=== PATIENT | female | born 1975 ===

== ENCOUNTER 2017-04-20 16:49 | Emergency (ER) | payer OTHER ==
[~2017-04-20] VITALS: Ht 165.1 cm; Wt 77.1 kg
[2017-04-20] MEDS ORDERED: TETANUS-DIPTH-ACEL PERTUSSIS 0.5ML SYRG IM ONE ×3 (16:52→17:00)
[2017-04-20 16:53] VITALS: BP 143/96
[2017-04-20] MEDS ORDERED: SODIUM CHLORIDE 0.9% 1,000 ML IV ONE (16:57)
[2017-04-20] MEDS ORDERED: HYDROmorphone HCL 2 MG/ML VL IV ONE (17:00)
[2017-04-20] MEDS ORDERED: PROMETHAZINE HCL 25 MG/ML 1ML IV ONE ×2 (17:00)
[2017-04-20] MEDS ORDERED: HYDROmorphone HCL 2 MG/ML VL IM ONE (17:00)
[2017-04-20] MEDS ORDERED: cefTRIAXone 1GM/50ML D5W 50 ML IV ONE ×2 (17:00)
== END 2017-04-20 17:33 | disposition short-term general hospital (02) ==
LOC: EDSEX 16:49 → ER 16:49
DX: S68.112A Complete traumatic metacarpophalangeal amputation of right middle finger, initial encounter (principal); S68.114A Complete traumatic metacarpophalangeal amputation of right ring finger, initial encounter; W31.89XA Contact with other specified machinery, initial encounter; Y93.89 Activity, other specified; Y99.8 Other external cause status; Y92.89 Other specified places as the place of occurrence of the external cause
CPT/HCPCS: 73120; 90471; 90715; 96365; 96375; 99285; J0696; J1170; J2550; J7030